=== PATIENT | male | born 1950 | race Caucasian/White ===

== ENCOUNTER 2023-09-10 08:50 | Outpatient (RCR) | payer MEDICARE ==
[~2023-09-10 08:50] MED LIST: COLLAGENASE OINTMENT 30 GM TUBE ONE; LIDOCAINE VISC 2% SOLN 15 ML UDC ONE
[2023-09-10] MEDS ORDERED: LIDOCAINE VISC 2% SOLN 15 ML UDC ONE (12:31)
[2023-09-10] MEDS ORDERED: COLLAGENASE OINTMENT 30 GM TUBE ONE (12:31)
[2023-09-12] MEDS ORDERED: DULCOLAX10 MG PR (05:33)
[2023-09-12] MEDS ORDERED: CARVEDILOL12.5 MG PEG (05:33)
[2023-09-12] MEDS ORDERED: LAMICTAL5 MG PEG (05:33)
[2023-09-12] MEDS ORDERED: CRESTOR10 MG PEG (05:33)
[2023-09-12] MEDS ORDERED: SINEMET 25-1001 EACH PEG (05:33)
[2023-09-12] MEDS ORDERED: CLONAZEPAM0.5 MG PEG (05:33)
[2023-09-12] MEDS ORDERED: EXELON1 EACH TD (05:33)
[2023-09-12] MEDS ORDERED: MIDODRINE HCL5 MG PEG (05:33)
[2023-09-12] MEDS ORDERED: SENOKOT-S TABL1 EACH PEG (05:33)
[2023-09-12] MEDS ORDERED: ENEMA READY TO133 ML PR (05:33)
[2023-09-12] MEDS ORDERED: REMERON15 MG PEG (05:33)
[2023-09-12] MEDS ORDERED: LACOSAMIDE10 MG/1 ML PEG (05:33)
[2023-09-12] MEDS ORDERED: MIRALAX17 GM PEG (05:33)
[2023-09-12] MEDS ORDERED: ELIQUIS2.5 MG PO (05:33)
[2023-09-12] MEDS ORDERED: HYDRALAZINE HCL10 MG PO (05:33)
[2023-09-12] MEDS ORDERED: LAMICTAL25 M1 PEG (20:32)
[2023-09-12] MEDS ORDERED: ACETAMINOP325 MG/10 PO (20:34)
[2023-09-13] MEDS ORDERED: MIDAZOLAM HCL 2 MG/2 ML VIAL ONE (10:56)
[2023-09-13] MEDS ORDERED: FENTANYL CITRATE/PF 100MCG/2 ML INJ ONE (10:56)
[2023-09-20] MEDS ORDERED: MIDODRINE HCL5 MG PEG (16:27)
== END 2023-09-25 14:47 | disposition home or self-care (01) ==
LOC: WCC 08:50
PROVIDERS: ATTEND Internal Medicine Infectious Disease
DX: L89.210 Pressure ulcer of right hip, unstageable (principal); L89.224 Pressure ulcer of left hip, stage 4; S30.810A Abrasion of lower back and pelvis, initial encounter
CPT/HCPCS: 11042; 11045; 87071; 87075; 87186; 87205; 97602 ×3; 97606 ×2; 99203; 99204; 99213; J0690; J2250